=== PATIENT | male | born 1945 | race Caucasian/White ===

== ENCOUNTER → 2017-05-21 | Outpatient (CLI) | payer OTHER ==
[~2017-05-21] MED LIST: ALBUTEROL2.5 MG/0.5 INH; ASPIRIN81 M2 PO; ATIVAN0.5 MG PO; ATORVASTATIN CA40 MG PO; CALCIUM 600 +1 EAC1 PO; ESSENTIAL DAIL1 EACH PO; FISH OIL 1,001000 M2 PO; FLOMAX0.4 MG PO; GLIPIZIDE 10 MG10 MG PO; GLUCOPHAGE XR750 MG PO; HYDROXYZINE HCL25 M1 PO; LEVAQUIN 250 M250 MG PO; LISINOPRIL20 MG PO; MUCINEX TA600 MG/TA2 PO; NIACIN 500 MG500 M1 PO; NOVOLOG100 UNIT/1 SUBQ; PEPCID20 MG PO; PREDNISONE 10 M10 MG PO; SORINE 80 MG TA80 M1 PO; SPIRIVA INH; SYMBICORT160 MCG/4. INH; THEOCHRON200 MG PO; VENTOLIN HFA 1818 GM INH; XALATAN2.5 ML OPHTHALMIC; XANAX 0.5 MG0.5 MG PO
== END ==
LOC: CAT 10:17
DX: J98.11 Atelectasis (principal)